=== PATIENT | female | born 1990 | race African-American/Black ===

== ENCOUNTER 2020-03-20 08:32 | Emergency (ER) | payer MEDICAID ==
[~2020-03-20] VITALS: Ht 162.6 cm; Wt 56.7 kg
[2020-03-20] MEDS ORDERED: Albuterol/Ipratropium 3ml neb HHN ONE (09:00)
--- NOTE | 2020-03-20 09:05 | NUR ---
ED Nurse Note: patient awake and alert to name,time, place and situation. she is able to use her cellular phone to call family. she comlains of throat tightness and remains on room air satruations at 100% with respirations of 14-15. she is able to formulate coherent and accurate answers to questions.
[2020-03-20 09:15] VITALS: BP 116/90
[2020-03-20] MEDS ORDERED: PROAIR HFA8.5 GM INH (09:16)
[2020-03-20] MEDS ORDERED: PREDNISONE20 MG ORAL (09:16)
--- NOTE | 2020-03-20 09:18 | Emergency Room Report ---
History of Present Illness General Chief Complaint: Asthma Source: Patient Present Illness HPI 29-year-old female with history of asthma here with mild shortness of breath. Patient says that over the past several days she has been using her albuterol rescue inhaler several times a day, which is abnormal for her. Says that she was hospitalized for severe asthma attack approximately 1 year ago. She says that every year "when it gets cold my asthma flares up." Denies fevers, chills, chest pain, palpitations, back pain, abdominal pain, nausea, vomiting, diarrhea, dysuria. Allergies: Coded Allergies: No Known Allergies (Unverified , 03/20/20) COVID-19 Screening Contact w/high risk pt: No Experienced COVID-19 symptoms?: No COVID-19 Testing performed WOOL BRUSHER: No Nursing Documentation-[facility] Past Medical History: No History, Except For Hx Asthma: Yes Review of Systems All Other Systems: negative except mentioned in HPI Physical Exam Vital Signs Date Time Temp Pulse Resp B/P (MAP) Pulse Ox O2 Delivery O2 Flow Rate FiO2 03/20/20 08:48 98.1 85 18 123/82 (96) 98 Room Air Sp02 EP Interpretation: reviewed, normal General Appearance: no apparent distress, alert, non-toxic Head: normocephalic, atraumatic Eyes: bilateral eye normal inspection, bilateral eye PERRL ENT: hearing grossly normal, normal pharynx, no angioedema, normal voice Neck: full range of motion, supple/symm/no masses Respiratory: chest non-tender, speaking full sentences, other - Very mild expiratory wheezes in all lung zuniga bilaterally. No respiratory distress. Speaking full sentences Cardiovascular #1: regular rate, rhythm, no edema Cardiovascular #2: 2+ carotid (R), 2+ carotid (L), 2+ radial (R), 2+ radial (L), 2+ dorsalis pedis (R), 2+ dorsalis pedis (L) Gastrointestinal: normal bowel sounds, non tender, soft, non-distended, no guarding, no rebound Rectal: deferred Genitourinary: normal inspection, no CVA tenderness Musculoskeletal: back normal, normal range of motion, calf tenderness, gait/station normal, non-tender Neurologic: alert, motor strength/tone normal, oriented x3, sensory intact, responsive, speech normal Psychiatric: judgement/insight normal, memory normal, mood/affect normal, no suicidal/homicidal ideation Reflexes: 3+ bicep (R), 3+ bicep (L), 3+ tricep (R), 3+ tricep (L), 3+ knee (R), 3+ knee (L) Lymphatic: no adenopathy Medical Decision Making Diagnostic Impression: Primary Impression: Asthma ER Course CXR: No infiltrate/effusion. Mediastinum within normal limits. No consolidations. No free air under the diaphragm. No bony abnormalities 29-year-old female with history of asthma here with mild shortness of breath. Patient very mild expiratory wheezes bilaterally. Was given a 15-minute DuoNeb treatment with good resolution of her symptoms. Given 60 mg prednisone p.o. here in the emergency department. Patient had no signs of respiratory distress and had normal vital signs on room air. Chest x-ray unremarkable. Given prescription for several days of prednisone and albuterol inhaler. Told to return with any worsening symptoms. Discharged in stable condition. Last Vital Signs Date Time Temp Pulse Resp B/P (MAP) Pulse Ox O2 Delivery O2 Flow Rate FiO2 03/20/20 08:48 98.1 85 18 123/82 (96) 98 Room Air Disposition: HOME, SELF-CARE Condition: Stable Scripts Prednisone* (PREDNISONE*) 20 Mg Tablet 40 MG ORAL DAILY for 4 Days, TAB Prov: Brigido Thomas M.D. 03/20/20 Albuterol Sulfate* (PROAIR HFA*) 8.5 Gm Hfa.aer.ad 2 PUFFS INH Q6H, #8.5 GM 0 Refills Prov: Brigido Thomas M.D. 03/20/20 Referrals: [facility] Patient Instructions: Asthma, Adult Brigido Thomas M.D. Mar 20, 2020 09:18
[2020-03-20 10:02] VITALS: BP 116/63
--- NOTE | 2020-03-20 10:02 | NUR ---
ED Nurse Note: Post breathing treatment with satruations of 100% with RR of 16 and heart rate of 75, Bp is 116/63. shest tightness is 1/10.
--- NOTE | 2020-03-20 10:06 | NUR ---
ED Nurse Note: patient discharge packet given and reviewed at the bedside, all questions and conserns answered.
[2020-03-20 10:17] VITALS: BP 115/60
--- NOTE | 2020-03-20 12:43 | Diagnostic Imaging Report ---
Procedure: XRAY Chest 1v Reason for study: Reason For Exam: SOB Comparison films: None. FINDINGS: A single one view chest is obtained. Vascularity is normal. The lung zuniga are clear bilaterally. Cardiac and mediastinal silhouette are within normal limits. CP angles are sharp. The bony thorax appear unremarkable. IMPRESSION: NO ACUTE CARDIOPULMONARY DISEASE.
== END 2020-03-20 10:10 | disposition home or self-care (01) ==
LOC: EMR 09:45
DX: J45.909 Unspecified asthma, uncomplicated (principal)
CPT/HCPCS: 71045; 94640; J7512; Z7502; 99283; J7620